=== PATIENT | female | born 1975 | race Native Hawaiian/Other Pacific Islander ===

== ENCOUNTER 2017-08-14 12:52 | Inpatient (IN) | payer OTHER ==
[~2017-08-14] VITALS: Ht 154.9 cm; Wt 80.4 kg
[~2017-08-14 12:52] MED LIST: CITALOPRAM40 MG PO; SITAVIG50 MG PO
[2017-08-14 13:00] VITALS: BP 116/80; TEMP 98.4
[2017-08-14 15:11] LABS: PLATELET COUNT 236 K/uL (152-353)
[2017-08-14 15:24] LABS: POTASSIUM 4.1 mmol/L (3.6-5.2); SODIUM 138 mmol/L (136-145)
[2017-08-14 20:25] VITALS: BP 112/78; TEMP 98.2
[2017-08-14 21:16] VITALS: BP 105/72; TEMP 98.7; Ht 154.9 cm; Wt 80.4 kg
[2017-08-15] VITALS: BP 102/60; TEMP 98.3
[2017-08-15 04:00] VITALS: BP 111/73; TEMP 98
[2017-08-15 06:18] LABS: POTASSIUM 4.1 mmol/L (3.6-5.2); SODIUM 138 mmol/L (136-145)
[2017-08-15 06:25] LABS: PLATELET COUNT 232 K/uL (152-353)
[2017-08-15 07:57] VITALS: BP 103/67; TEMP 97.7
[2017-08-15 12:00] VITALS: BP 107/66; TEMP 98.2
[2017-08-15 16:00] VITALS: BP 112/69; TEMP 98.3
[2017-08-15 20:00] VITALS: BP 101/66; TEMP 98.7
[2017-08-16] VITALS (12 sets, daily range): BP systolic 92–178; BP diastolic 57–88; TEMP 98–98.9
[2017-08-16 05:33] LABS: PLATELET COUNT 252 K/uL (152-353)
[2017-08-16 05:54] LABS: POTASSIUM 4.2 mmol/L (3.6-5.2); SODIUM 137 mmol/L (136-145)
[2017-08-17] VITALS: BP 97/61; TEMP 98.4
[2017-08-17 04:00] VITALS: BP 103/72; TEMP 98.1
[2017-08-17 06:37] LABS: PLATELET COUNT 291 K/uL (152-353)
[2017-08-17 07:10] LABS: SODIUM 138 mmol/L (136-145)
[2017-08-17 08:00] VITALS: BP 103/71; TEMP 97.6
[2017-08-17 12:00] VITALS: BP 110/85; TEMP 98.1
== END 2017-08-17 16:55 | disposition home or self-care (01) | DRG 603 ==
LOC: ED 12:52 → MED/SURG 16:21
PROVIDERS: Family Medicine; ADMIT Specialist
PROC: 0H98XZZ Drainage of Buttock Skin, External Approach (ICD-10-PCS; principal; 2017-08-16)
DX: L03.317 Cellulitis of buttock (principal); B95.62 Methicillin resistant Staphylococcus aureus infection as the cause of diseases classified elsewhere; M79.7 Fibromyalgia; B19.20 Unspecified viral hepatitis C without hepatic coma; B00.9 Herpesviral infection, unspecified; F41.9 Anxiety disorder, unspecified
CPT/HCPCS: 36415; 80048; 80053; 83735; 85027; 85651; 87040; 87070; 87076; 87077; 87185; 87186; 87205; 87798; 96365; 96367; 96374; 96375; 99284; J0132; J1885; J2001; J2175; J2250; J2405; J2704; J3010; J3370; J3490

== ENCOUNTER 2018-08-26 15:48 | Emergency (ER) | payer OTHER ==
[~2018-08-26] VITALS: Ht 167.6 cm; Wt 77.1 kg
[2018-08-26 17:34] VITALS: BP 124/86; TEMP 98
== END 2018-08-26 18:05 | disposition home or self-care (01) ==
LOC: ED 15:48
DX: M25.512 Pain in left shoulder (principal); S40.012A Contusion of left shoulder, initial encounter; W01.0XXA Fall on same level from slipping, tripping and stumbling without subsequent striking against object, initial encounter; Y92.89 Other specified places as the place of occurrence of the external cause
CPT/HCPCS: 96374; 99283; J1885

== ENCOUNTER 2021-09-15 10:11 | Outpatient (CLI) | payer OTHER | END 2021-09-15 19:04 | disposition home or self-care (01) | LOC: US 10:11 | PROVIDERS: ATTEND Internal Medicine Gastroenterology | DX: B18.2 Chronic viral hepatitis C (principal) ==

== ENCOUNTER 2022-06-30 14:55 | Outpatient (CLI) | payer OTHER | END 2022-06-30 18:54 | disposition home or self-care (01) | LOC: RAD 14:55 | PROVIDERS: ATTEND Nurse Practitioner Family | DX: R05.3 Chronic cough (principal) ==